=== PATIENT | male | born 1945 | race Caucasian/White ===

== ENCOUNTER 2022-05-03 06:18 | Day surgery (SDC) | payer OTHER ==
[2022-04-26 15:56] LABS: GLUCOSE, URINE 100 mg/dl (Neg); KETONES,URINE NEGATIVE (Neg); LEUKOCYTE ESTERASE ,URINE SMALL (Neg); NITRITES, URINE POSITIVE (Neg); OCCULT BLOOD,URINE NEGATIVE (Neg); PROTEIN,URINE TRACE mg/dl (Neg)
[2022-04-26 16:05] LABS: ALBUMIN 3.2 G/DL (3.4-5.0); ALBUMIN/GLOBULIN RATIO 0.8 (1.1-1.5); ALKALINE PHOSPHATASE 167 IU/L (46-116); BLOOD UREA NITROGEN 16 MG/DL (7-18); BUN/CREATININE RATIO 12.4 (5.4-32.0); CALCIUM 10.3 MG/DL (8.5-10.1); CHLORIDE 105 MMOL/L (99-107); CREATININE 1.29 MG/DL (0.60-1.10); PRE OP ALT 68 U/L (30-65); PRE OP ANION GAP 9 (8-16); PRE OP AST 23 U/L (10-37); PRE OP BILIRUB, TOTAL 0.8 MG/DL (0.0-1.0); PRE OP GLUCOSE 99 MG/DL (70-104); PRE OP POTASSIUM 3.4 MMOL/L (3.4-5.1); PRE OP SODIUM 141 MMOL/L (135-145); TOTAL CARBON DIOXIDE 27.5 MMOL/L (24-32); TOTAL PROTEIN 7.1 G/DL (6.4-8.2); eGFR 54 ML/MIN
[2022-04-26 16:07] LABS: CLARITY,URINE SLIGHTLY CLOUDY (Clear); COLOR,URINE DARK YELLOW (Yellow); UA COLLECTION TYPE CLN CATCH MIDSTREAM
[2022-04-26 16:08] LABS: BASOPHILS % (AUTO) 0.5 % (0-1); EOSINOPHILS # (AUTO) 0.4 X10'3 (0-0.9); EOSINOPHILS % (AUTO) 4.3 % (0-6); LYMPHOCYTES # (AUTO) 1.4 X10'3 (1.1-4.8); LYMPHOCYTES % (AUTO) 15.2 % (21-51); MEAN CORPUSCULAR HEMOGLOBIN 30.7 PG (27.0-31.0); MEAN CORPUSCULAR HGB CONC 32.9 g/dL (33.0-36.5); MEAN CORPUSCULAR VOLUME 93.4 FL (78-98); MEAN PLATELET VOLUME 6.8 FL (7.4-10.4); MONOCYTES # (AUTO) 0.7 X10'3 (0-0.9); MONOCYTES % (AUTO) 7.5 % (2-12); NEUTROPHILS # (AUTO) 6.5 X10'3 (1.8-7.7); NEUTROPHILS % (AUTO) 72.5 % (42-75); PRE OP HEMATOCRIT 39.9 % (42.0-52.0); PRE OP HEMOGLOBIN 13.1 g/dL (14.0-17.9); PRE OP PLATELET COUNT 358 X10'3 (140-440); RED BLOOD COUNT 4.27 X10'6 (4.70-6.10); RED CELL DISTRIBUTION WIDTH 14.1 % (11.5-14.5)
[2022-04-26 16:09] LABS: WBC,URINE 20-30 /HPF (0-4)
[2022-04-26 16:10] LABS: BACTERIA,URINE FEW /HPF (Neg); MUCUS STRANDS MODERATE /LPF (Neg); RBC,URINE NONE SEEN /HPF (0-2); RENAL CELLS, URINE FEW /HPF; SQUAMOUS EPITHELIAL CELL,UR FEW /LPF (FEW); TRANSITIONAL EPI CELLS,URINE FEW /HPF; WBC CLUMPS,URINE MANY /HPF (NEGATIVE)
[2022-04-26 16:11] LABS: HYALINE CASTS 0-3 /LPF (NEGATIVE)
[2022-05-03] VITALS (12 sets, daily range): BP systolic 139–180; BP diastolic 65–91
[~2022-05-03] VITALS: Ht 177.8 cm; Wt 102.2 kg
[~2022-05-03 06:18] MED LIST: ATOR-2 PO; CHOL10006 PO; CITA40TA22 PO; FLO0.4C PO; LORA10TA7 PO; MULT-1085 PO; OMEP20CA16 PO; QUET100T34 PO; ceFAZolin inj. 2,000 MG in dextrose 5%-water 100 ML IV ONE; famotidine 20mg tablet PO ONE; ringers solution, lacted 1,000 ML IV SCH
--- NOTE | 2022-05-03 06:40 | NUR ---
RECEIVED PT FROM HOME. SON AT BEDSIDE, PT IS SCHEDULED FOR UMBILICAL HERNIA REPAIR. LARGE GRAPEFRUIT SIZE HERNIA PRESENT. IV STARTED WITHOUT DIFFICULTY. PT STATES HE HAS LOST40 POUNDS SINCE SEPTEMBER 2021 AND RECENTLY HAD ISSUES WITH SYNCOPY FROM HIS BLOOD PRESSURE MEDICINES. HIS DOCTOR CUT HIS DOSE IN HALF BUT HE STILL HAD THE ISSUES. HE HAS SINCE STOP TAKING HIS BLOOD PRESSURRE MEDICINES. HE SEEMS NON COMPLIANANT ON HIS OTHER MEDICATIONS ALSO. PTS BLOOD PRESSURE WAS 188/88. INFORMED PT OF ELEVATED BLOOD PRESSURE AND ADVISED HIM TO FOLLOW UP WITH HIS PRIMARY CARE DOCTOR ABOUT HIS BLOOD PRESSURE AND MEDICATIONS. DR DC NOTIFIED ALSO, AGREES THAT PT NEEDS TO FOLLOW UP WITH PCP. PT SEEN BY ANESTHESIA AND SURGEON. WHILE SURGEON WAS AT BEDSIDE, DECISION MADE TO TAKE LEFT CHEEK LESION OFF ALSO. CONSENT MODIFIED, OPERATING ROOM NOTIFIED OF PROCEDURE ADDITION.
[2022-05-03] MEDS ORDERED: BUPIVAcaine 0.5% inj/PF 30 ML ONE ×2 (08:18→08:31)
[2022-05-03] MEDS ORDERED: BUPIVACAINE liposomal/PF 13.3 MG/ML vial IM ONE (08:31)
[2022-05-03] MEDS ORDERED: glycopyrrolate 0.2mg/ml inj ONE (08:39)
[2022-05-03] MEDS ORDERED: sevoflurane 250ml liquid IH ONE (08:39)
[2022-05-03] MEDS ORDERED: neostigmine methylsulfate 1 MG/ML 10ml vial ONE (08:39)
[2022-05-03] MEDS ORDERED: proCHLORperazine 10 MG/2 ml inj IV PRN (08:45)
[2022-05-03] MEDS ORDERED: labetalol 20mg/4ml (5mg/ml) syringe IV PRN (08:45)
[2022-05-03] MEDS ORDERED: ringers solution, lacted 1,000 ML IV SCH (08:45)
[2022-05-03] MEDS ORDERED: morphine 2 MG/ML inj. syringe IV PRN (08:45)
[2022-05-03] MEDS ORDERED: acetaminophen 1,000mg/100ml IV 100 ML IV PRN (08:45)
[2022-05-03] MEDS ORDERED: ondansetron/PF 4mg/2ml inj IV PRN (08:45)
[2022-05-03] MEDS ORDERED: meperidine/PF 25mg/ml syringe IV PRN (08:45)
[2022-05-03] MEDS ORDERED: morphine 4 MG/ML inj SYRINge IV PRN (08:45)
[2022-05-03] MEDS ORDERED: HYDROmorphone/PF 0.2 MG/ML SYRINGE IV PRN ×2 (08:45)
[2022-05-03] MEDS ORDERED: midazolam 1 mg/ML 2ml injection ONE (08:48)
[2022-05-03] MEDS ORDERED: fentaNYL /PF 50mcg/ml 5ml ampule ONE (09:11)
[2022-05-03] MEDS ORDERED: LIDOcaine 2% (20mg/ml) 5ml vial ONE (09:22)
[2022-05-03] MEDS ORDERED: rocuronium 10mg/ml inj IV ONE (09:22)
[2022-05-03] MEDS ORDERED: dexamethasone sod phosphate 4mg/ml inj. ONE (09:22)
[2022-05-03] MEDS ORDERED: ondansetron/PF 4mg/2ml inj ONE (09:22)
[2022-05-03] MEDS ORDERED: propofol inj 20 ML IV ONE (09:22)
[2022-05-03] MEDS ORDERED: BUPIVAcaine 0.5% inj/PF 30 ml vial IJ ONE (09:42)
[2022-05-03] MEDS ORDERED: BUPIVAcaine 0.25% w/Epi /PF 30ml vial ONE (09:49)
--- NOTE | 2022-05-03 10:10 | NUR ---
Received from OR via [facility] , accompanied by Anesthesiologist and report given by JOANN Anesthesiologist. PATIENT WAKING UP, DENIES PAIN, V/S WNL, PIV 20G LEFT HAND, DERMABONDED LAPS SITES CLOSED C/D/I TO ABDOMEN. LEFT CHEEK DERMABONDED LESION C/D/I. Addendum: 05/03/22 at 1034 by Demetrius Guillen RN Amended: Links added.
[2022-05-03] MEDS: hydrALAZINE 20mg/ml inj. IV PRN ×2 (10:37→10:54)
--- NOTE | 2022-05-03 12:35 | NUR ---
ALL DISCHARGE CRITERIA HAS BEEN MET. VSS, PAIN AT A TOLERABLE LEVEL, ABLE TO SAFELY AMBULATE AND TRANSFER SELF. IV TAKEN OUT WITHOUT ANY COMPLICATIONS. ALL DISCHARGE INSTRUCTIONS COVERED WITH PATIENT AND ALL QUESTIONS ANSWERED. PATIENT TAKEN OUT VIA WHEELCHAIR WITH ALL BELONGINGS TO PERSONAL VEHICLE WHERE FAMILY DROVE PATIENT HOME. Addendum: 05/03/22 at 1252 by Demetrius Guillen RN Amended: Links added.
--- NOTE | 2022-05-03 17:30 | NUR ---
PATIENT CALLED BACK TO NOTIFY RN THAT HE IS UNABLE TO URINATE AT HOME. RN SUGGESTED PATIENT TO COME BACK TO HOSPITAL TO HAVE LONG CATHETER INSTRUCTED BY MD AND RN EXPLAINED THE RISK AND BENEFIT OF HAVING IT AND PATIENT REFUSED TO COME TO BACK TO HOSPITAL AND EXPLAINED THAT HE NEEDS TO GO TO ER IF HE COULD NOT URINATE THROUGHOUT THE NIGHT.
== END 2022-05-03 12:35 | disposition home or self-care (01) ==
LOC: PAS 06:18
PROVIDERS: ATTEND Surgery
DX: K42.0 Umbilical hernia with obstruction, without gangrene (principal); L98.8 Other specified disorders of the skin and subcutaneous tissue; I10 Essential (primary) hypertension; E78.5 Hyperlipidemia, unspecified; F43.10 Post-traumatic stress disorder, unspecified; G47.00 Insomnia, unspecified; K21.9 Gastro-esophageal reflux disease without esophagitis; N40.0 Benign prostatic hyperplasia without lower urinary tract symptoms; Z87.891 Personal history of nicotine dependence; Z72.89 Other problems related to lifestyle; Z79.899 Other long term (current) drug therapy; Z98.890 Other specified postprocedural states; Z87.440 Personal history of urinary (tract) infections; R20.2 Paresthesia of skin
CPT/HCPCS: 11440; 36415; 49594; 64488; 80053; 81001; 82948; 85025; 87088; C1781; C9290; J0360; J0690; J1100; J2250; J2405; J2704; J2710; J3010; J3490; J7030; J7060; J7120; S0020; Z7506; Z7508; Z7512; A4618; A4628; A7000

== ENCOUNTER 2022-05-12 12:35 | Emergency (ER) | payer OTHER, MEDICARE ==
[~2022-05-12] VITALS: Ht 177.8 cm; Wt 101.0 kg
[~2022-05-12 12:35] MED LIST changes: -ceFAZolin inj. 2,000 MG in dextrose 5%-water 100 ML IV ONE; -famotidine 20mg tablet PO ONE; -ringers solution, lacted 1,000 ML IV SCH
--- NOTE | 2022-05-12 13:42 | NUR ---
handed dr. stevenson pt paperwork with labs from [place].
[2022-05-12] MEDS ORDERED: normal saline 1000ML IV soln IV ONE (14:55)
[2022-05-12] MEDS ORDERED: CefTRIAXone 2gm/D5W 50ml BAG 50 ML IV ONE (14:55)
[2022-05-12 16:27] VITALS: BP 161/66
== END 2022-05-12 16:28 | disposition home or self-care (01) ==
LOC: ER 12:35
DX: N20.1 Calculus of ureter (principal)
CPT/HCPCS: 96365; 99284; J0696; J7030